=== PATIENT | female | born 1970 | race Caucasian/White ===

== ENCOUNTER 2021-12-10 01:54 | Emergency (ER) | payer SELFPAY ==
[~2021-12-10] VITALS: Ht 157.5 cm; Wt 82.1 kg
[2021-12-10] MEDS ORDERED: ONDA4TAB5 PO (04:03)
[2021-12-10 04:23] VITALS: BP 134/68
== END 2021-12-10 04:26 | disposition home or self-care (01) ==
LOC: ER 01:58
DX: R11.2 Nausea with vomiting, unspecified (principal)